=== PATIENT | female | born 1965 | race African-American/Black ===

== ENCOUNTER 2020-10-04 22:46 | Emergency (ER) | payer OTHER ==
[~2020-10-04] VITALS: Ht 160 cm; Wt 86.2 kg
[2020-10-05 01:56] LABS: ABSOLUTE NEUTROPHILS 2.9 thou/uL (1.4-8.2); BASOPHILS 2.8 % (0.0-2.0); EOSINOPHILS 0.9 % (0.0-3.0); HEMATOCRIT 42.3 % (37.0-47.0); HEMOGLOBIN 13.9 gm/dL (12.0-15.0); LYMPHOCYTES 36.2 % (24.0-44.0); MCH 27.6 pg (26.0-34.0); MCHC 32.8 g/dL (28.0-37.0); MONOCYTES 4.8 % (1.0-8.0); PLATELET COUNT 271 thou/uL (150-400); POLYS 55.3 % (36.0-66.0); RBC 5.03 mil/uL (4.20-5.00); RDW 13.9 % (10.5-14.5); WBC 5.2 thou/uL (4.0-11.0)
[2020-10-05 02:13] LABS: CALCIUM 8.8 mg/dL (8.5-10.1); CREATININE 0.9 mg/dL (0.6-1.0); POTASSIUM 3.7 mmol/L (3.5-5.1)
[2020-10-05 02:19] LABS: TOTAL BILIRUBIN 0.3 mg/dL (0.2-1.0); TOTAL PROTEIN 7.9 g/dL (6.4-8.2)
[2020-10-05] MEDS ORDERED: ASA81BEC PO (02:45)
[2020-10-05] MEDS ORDERED: MECLIZINE HCL25 M1 PO (02:45)
[2020-10-05 02:51] VITALS: BP 142/80
--- NOTE | 2020-10-05 10:19 | EKG ---
[place] [address] [address] 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
== END 2020-10-05 02:56 | disposition home or self-care (01) ==
LOC: ER 22:46
PROVIDERS: Emergency Medicine
DX: R42 Dizziness and giddiness (principal); E11.9 Type 2 diabetes mellitus without complications; I10 Essential (primary) hypertension